=== PATIENT | female | born 1985 | race African-American/Black ===

== ENCOUNTER → 2018-02-08 13:53 | Outpatient (CLI) | payer OTHER, SELFPAY ==
[2018-02-08 16:12] LABS: hCG Titer Quant., Serum 11 mIU/mL (<9 non-preg)
== END ==
PROVIDERS: Visit Provider Obstetrics & Gynecology
DX: O20.0 Threatened abortion (principal); N91.2 Amenorrhea, unspecified; Z3A.00 Weeks of gestation of pregnancy not specified
CPT/HCPCS: 36415; 84702; 86900

== ENCOUNTER → 2018-02-10 13:31 | Outpatient (CLI) | payer OTHER, SELFPAY ==
[2018-02-10 19:25] LABS: hCG Titer Quant., Serum 5 mIU/mL (<9 non-preg)
== END ==
PROVIDERS: Visit Provider Obstetrics & Gynecology
DX: N91.2 Amenorrhea, unspecified (principal); O20.0 Threatened abortion; Z3A.00 Weeks of gestation of pregnancy not specified
CPT/HCPCS: 36415; 84702

== ENCOUNTER → 2018-06-08 | Outpatient (CLI) | payer OTHER, SELFPAY ==
[2018-06-08 09:44] LABS: hCG Titer Quant., Serum 672 mIU/mL (1-3)
== END | disposition home or self-care (01) ==
LOC: WOBLAB 08:37
PROVIDERS: Visit Provider Obstetrics & Gynecology
DX: O20.0 Threatened abortion (principal); Z3A.00 Weeks of gestation of pregnancy not specified
CPT/HCPCS: 36415; 84702

== ENCOUNTER → 2018-06-10 | Outpatient (CLI) | payer OTHER, SELFPAY ==
[2018-06-10 09:30] LABS: hCG Titer Quant., Serum 409 mIU/mL (1-3)
== END | disposition home or self-care (01) ==
LOC: WOBLAB 08:52
PROVIDERS: Visit Provider Obstetrics & Gynecology
DX: O20.0 Threatened abortion (principal); Z3A.00 Weeks of gestation of pregnancy not specified
CPT/HCPCS: 36415; 84702